=== PATIENT | female | born 1945 | race Caucasian/White ===

== ENCOUNTER 2021-08-12 04:15 | Inpatient (IN) | payer MEDICARE ==
[~2021-08-12] VITALS: Ht 149.9 cm; Wt 71.9 kg
[2021-08-12] MEDS ORDERED: IPRATROPIUM BROM 0.5 MG/2.5ML INH SOL HHN ONE (04:30)
[2021-08-12] MEDS ORDERED: DexAMETHasone SOD PHOS 10MG/1ML VIAL INJ IV ONE (04:30)
[2021-08-12] MEDS ORDERED: ALBUTEROL SULF 2.5 MG/0.5ML(0.5%) NEB SOLN HHN ONE (04:30)
[2021-08-12 05:16] LABS: Basophils # (auto) 0 10 ^3/uL (0-0.2); Basophils % (auto) 0.1 % (0.0-2.0); Eosinophils # (auto) 0 10 ^3/uL (0-0.8); Eosinophils % (auto) 0.2 % (0.0-7.0); Hematocrit 38.3 % (36.0-46.0); Hemoglobin 12.7 g/dL (12.2-16.2); Lymphocytes # (auto) 0.7 10 ^3/uL (0.4-5.4); Lymphocytes % (auto) 5.9 % (10.0-50.0); Mean Corpuscular Hemoglobin 32.1 pg (28.0-32.0); Mean Corpuscular Hgb Conc. 33.1 g/dL (32.0-36.0); Monocytes # (auto) 0.4 10 ^3/uL (0-1.3); Monocytes % (auto) 3.1 % (0.0-12.0); Neutrophils # (auto) 11.1 10 ^3/uL (1.6-8.6); Neutrophils % (auto) 90.7 % (37.0-80.0); Red Blood Cells 3.95 10^6/uL (4.0-5.20); Red Cell Distribution Width 15.6 % (11.8-14.3); White Blood Cell 12.2 10^3/uL (4.4-10.8)
[2021-08-12 05:31] LABS: INR 1.11 (0.9-1.15); Partial Thromboplastin Time 29.7 sec (23.6-33.0)
[2021-08-12 05:34] LABS: Albumin 3.1 g/dL (3.4-5.0); Calcium 8.1 mg/dL (8.5-10.1); Magnesium 1.5 mg/dL (1.6-2.6)
[2021-08-12 05:37] LABS: Lactic Acid w/Reflex 3.3 mmol/L (0.4-2.0)
[2021-08-12 05:40] LABS: BUN/Creatinine Ratio 20.4; Bilirubin, Total 0.4 mg/dL (0.2-1.0); Total Protein 7.6 g/dL (6.4-8.2)
[2021-08-12] MEDS ORDERED: PIPERACILLIN-TAZO 4.5GM 100 ML IV ONE (06:00)
[2021-08-12] MEDS ORDERED: NITROGLYCERIN 0.4 MG SL TAB SL PRN (11:00)
[2021-08-12] MEDS ORDERED: MORPHINE SULFATE INJECTION 2 MG/ML SYRG IV PRN (11:00)
[2021-08-12] MEDS ORDERED: ASPirin-EC 81 mg tab PO ONE (11:36)
[2021-08-12] MEDS ORDERED: METOPROLOL TARTRATE 25 MG TAB PO ONE (11:36)
[2021-08-12] MEDS ORDERED: PANTOPRAZOLE 40 MG TAB PO ONE (11:36)
[2021-08-12] MEDS ORDERED: ALBUTEROL SULF 2.5 MG/0.5ML(0.5%) NEB SOLN NEB PRN (11:45)
[2021-08-12] MEDS ORDERED: IPRATROPIUM BROM 0.5 MG/2.5ML INH SOL NEB PRN (11:45)
[2021-08-12] MEDS ORDERED: AZITHROMYCIN 500MG/ 250ML 250 ML IV ONE (12:00)
[2021-08-12] MEDS: MAGNESIUM SULFATE 1GM/100ML 100 ML IV SCH ×2 (12:11→15:31)
[2021-08-12] MEDS ORDERED: FUROSEMIDE 20 MG/2 ML VIAL IV ONE (12:15)
[2021-08-12] MEDS ORDERED: DEXTROSE (50%) 50ML SYRG IV PRN (13:00)
[2021-08-12 13:16] LABS: Urine Bacteria MANY /hpf (None Seen); Urine Blood 3+ /uL (Negative); Urine WBC 90 /hpf (0 - 5)
[2021-08-12 13:41] VITALS: BP 104/53
[2021-08-12] MEDS: PRAMIPEXOLE DIHYDROCHLORIDE MO 0.25 MG TAB PO SCH ×2 (14:31→22:00)
[2021-08-12] MEDS ORDERED: IOHEXOL 350 MG/ML 100ML IJ ONE (15:05)
[2021-08-12] MEDS: ACCU-CHEK COMFORT CURVE STRIP VI SCH ×2 (16:57→22:00)
[2021-08-12] MEDS: InsuLIN REG 1unit/0.01ml Soln (100units/ml) SC SCH ×2 (16:57→22:12)
[2021-08-12] MEDS: FUROSEMIDE 20 MG/2 ML VIAL IV SCH (18:21)
[2021-08-12] MEDS ORDERED: TORS20TA19 PO (18:55)
[2021-08-12] MEDS ORDERED: MAGN241.6 PO (18:55)
[2021-08-12] MEDS ORDERED: METO25TA93 PO (18:55)
[2021-08-12] MEDS ORDERED: VALS1TAB56 PO (18:55)
[2021-08-12] MEDS ORDERED: FLEC1TAB PO (18:55)
[2021-08-12] MEDS ORDERED: GABA300C10 PO (18:55)
[2021-08-12] MEDS ORDERED: [UNRECOGNIZED DRUG - CODE] EACHEYE (18:55)
[2021-08-12] MEDS ORDERED: PRAM0.12 PO (19:00)
[2021-08-12 22:00] VITALS: BP 101/59
[2021-08-12] MEDS: METOPROLOL TARTRATE 25 MG TAB PO SCH (22:00)
[2021-08-12] MEDS: APIXABAN 5 MG TAB PO SCH (22:00)
[2021-08-12 22:18] VITALS: BP 101/59
[2021-08-13 05:00] VITALS: BP 115/66
[2021-08-13] MEDS: FUROSEMIDE 20 MG/2 ML VIAL IV SCH ×2 (05:46→18:00)
[2021-08-13] MEDS: guaiFENesin-DM 100/10mg/5ml SYR PO PRN (05:56)
[2021-08-13 06:12] LABS: Basophils # (auto) 0 10 ^3/uL (0-0.2); Basophils % (auto) 0.1 % (0.0-2.0); Eosinophils # (auto) 0 10 ^3/uL (0-0.8); Hematocrit 34.6 % (36.0-46.0); Hemoglobin 11.4 g/dL (12.2-16.2); Lymphocytes # (auto) 0.9 10 ^3/uL (0.4-5.4); Lymphocytes % (auto) 6.5 % (10.0-50.0); Mean Corpuscular Hemoglobin 31.2 pg (28.0-32.0); Mean Corpuscular Volume 94.6 fL (80.0-100.0); Monocytes # (auto) 0.5 10 ^3/uL (0-1.3); Monocytes % (auto) 3.4 % (0.0-12.0); Neutrophils # (auto) 12.2 10 ^3/uL (1.6-8.6); Red Blood Cells 3.66 10^6/uL (4.0-5.20); White Blood Cell 13.6 10^3/uL (4.4-10.8)
[2021-08-13] MEDS: ACCU-CHEK COMFORT CURVE STRIP VI SCH ×4 (06:38→22:29)
[2021-08-13] MEDS: InsuLIN REG 1unit/0.01ml Soln (100units/ml) SC SCH ×4 (06:39→22:00)
[2021-08-13 06:43] LABS: Potassium 3.6 mmol/L (3.5-5.1)
[2021-08-13 06:49] LABS: Albumin 2.8 g/dL (3.4-5.0); BUN/Creatinine Ratio 27.8; Bilirubin, Total 0.5 mg/dL (0.2-1.0); Calcium 8.1 mg/dL (8.5-10.1); Magnesium 1.7 mg/dL (1.6-2.6); Total Protein 6.9 g/dL (6.4-8.2)
[2021-08-13 09:00] VITALS: BP 123/63
[2021-08-13] MEDS: cefTRIAXone 1GM/50ML D5W 50 ML IV SCH (09:00)
[2021-08-13] MEDS: AZITHROMYCIN 500MG/ 250ML 250 ML IV SCH (10:00)
[2021-08-13] MEDS: PRAMIPEXOLE DIHYDROCHLORIDE MO 0.25 MG TAB PO SCH ×2 (10:00→22:14)
[2021-08-13] MEDS ORDERED: ASPirin-EC 81 mg tab PO SCH (10:00)
[2021-08-13] MEDS: APIXABAN 5 MG TAB PO SCH ×2 (10:00→22:15)
[2021-08-13] MEDS: METOPROLOL TARTRATE 25 MG TAB PO SCH ×2 (10:00→22:15)
[2021-08-13] MEDS ORDERED: PANTOPRAZOLE 40 MG TAB PO SCH (10:00)
[2021-08-13] MEDS ORDERED: MAGNESIUM SULFATE 1GM/100ML 100 ML IV ONE ×2 (12:45→14:15)
[2021-08-13 12:49] VITALS: BP 144/55
[2021-08-13 16:35] VITALS: BP 99/61
[2021-08-13 20:00] VITALS: BP 101/49
[2021-08-13 22:00] VITALS: BP 101/54
[2021-08-14] MEDS: guaiFENesin-DM 100/10mg/5ml SYR PO PRN ×2 (01:04→22:16)
[2021-08-14 05:00] VITALS: BP 114/57
[2021-08-14 05:03] LABS: Magnesium 1.6 mg/dL (1.6-2.6)
[2021-08-14 06:09] LABS: Basophils # (auto) 0 10 ^3/uL (0-0.2); Eosinophils # (auto) 0 10 ^3/uL (0-0.8); Eosinophils % (auto) 0.2 % (0.0-7.0); Hematocrit 36.3 % (36.0-46.0); Hemoglobin 12.3 g/dL (12.2-16.2); Lymphocytes # (auto) 1.6 10 ^3/uL (0.4-5.4); Lymphocytes % (auto) 12.6 % (10.0-50.0); Mean Corpuscular Hemoglobin 32.4 pg (28.0-32.0); Mean Corpuscular Hgb Conc. 33.9 g/dL (32.0-36.0); Mean Corpuscular Volume 95.7 fL (80.0-100.0); Monocytes # (auto) 0.6 10 ^3/uL (0-1.3); Neutrophils # (auto) 10.6 10 ^3/uL (1.6-8.6); Neutrophils % (auto) 82.2 % (37.0-80.0); Red Blood Cells 3.79 10^6/uL (4.0-5.20); Red Cell Distribution Width 15.3 % (11.8-14.3); White Blood Cell 12.8 10^3/uL (4.4-10.8)
[2021-08-14 06:22] LABS: Calcium 8.2 mg/dL (8.5-10.1); Potassium 3.2 mmol/L (3.5-5.1)
[2021-08-14] MEDS: FUROSEMIDE 20 MG/2 ML VIAL IV SCH ×2 (06:52→17:45)
[2021-08-14] MEDS: ACCU-CHEK COMFORT CURVE STRIP VI SCH ×4 (06:52→21:54)
[2021-08-14] MEDS: InsuLIN REG 1unit/0.01ml Soln (100units/ml) SC SCH ×4 (07:00→21:54)
[2021-08-14 09:00] VITALS: BP 105/58
[2021-08-14] MEDS: cefTRIAXone 1GM/50ML D5W 50 ML IV SCH (11:15)
[2021-08-14] MEDS: CHOLECALCIFEROL (VITD3) 2,000 UNIT CAP/TAB PO SCH (11:15)
[2021-08-14] MEDS: APIXABAN 5 MG TAB PO SCH ×2 (11:15→21:53)
[2021-08-14] MEDS: METOPROLOL TARTRATE 25 MG TAB PO SCH ×2 (11:15→21:53)
[2021-08-14] MEDS: PRAMIPEXOLE DIHYDROCHLORIDE MO 0.25 MG TAB PO SCH ×2 (11:16→21:53)
[2021-08-14 13:00] VITALS: BP 104/61
[2021-08-14] MEDS: AZITHROMYCIN 500MG/ 250ML 250 ML IV SCH (14:46)
[2021-08-14] MEDS: ACETAMINOPHEN 325 MG TAB PO PRN (16:46)
[2021-08-14 17:00] VITALS: BP 112/63
[2021-08-14] MEDS ORDERED: MAGNESIUM SULFATE 1GM/100ML 100 ML IV SCH (17:00)
[2021-08-14] MEDS ORDERED: POTASSIUM CHL 20 Meq TABLET PO ONE (17:00)
[2021-08-14] MEDS: MAGNESIUM SULFATE 1GM/100ML 100 ML IV SCH ×2 (19:47→20:52)
[2021-08-14 21:37] VITALS: BP 110/71
[2021-08-14] MEDS: POTASSIUM CHL 10 Meq TABLET PO SCH (21:53)
[2021-08-15] MEDS: guaiFENesin-DM 100/10mg/5ml SYR PO PRN ×2 (02:53→22:47)
[2021-08-15 05:00] VITALS: BP 112/61
[2021-08-15] MEDS: FUROSEMIDE 20 MG/2 ML VIAL IV SCH ×2 (06:47→18:25)
[2021-08-15] MEDS: InsuLIN REG 1unit/0.01ml Soln (100units/ml) SC SCH ×4 (07:00→22:00)
[2021-08-15 07:05] LABS: Potassium 4.1 mmol/L (3.5-5.1)
[2021-08-15] MEDS: ACCU-CHEK COMFORT CURVE STRIP VI SCH ×4 (07:07→22:48)
[2021-08-15 07:20] LABS: Hematocrit 38.2 % (36.0-46.0); Hemoglobin 12.7 g/dL (12.2-16.2); Mean Corpuscular Hemoglobin 31.9 pg (28.0-32.0); Mean Corpuscular Hgb Conc. 33.3 g/dL (32.0-36.0); Mean Corpuscular Volume 95.7 fL (80.0-100.0); Red Blood Cells 3.99 10^6/uL (4.0-5.20); Red Cell Distribution Width 15.6 % (11.8-14.3); White Blood Cell 7.3 10^3/uL (4.4-10.8)
[2021-08-15 07:22] LABS: Band Neutrophils % (manual) 0; Basophils % (manual) 0 (0.0-2.0); Blast Cells 0; Metamyelocytes % 0; Myelocytes % 0; Promyelocytes % 0; Reactive Lymphocytes 0
[2021-08-15] MEDS: ACETAMINOPHEN 325 MG TAB PO PRN ×2 (07:22→20:26)
[2021-08-15 08:00] VITALS: BP 102/59
[2021-08-15 08:36] LABS: Eosinophils % (manual) 2 (0-7); Lymphocytes % (manual) 24 (10.0-50.0); Monocytes % (manual) 9 (0-12)
[2021-08-15 09:00] VITALS: BP 102/58
[2021-08-15] MEDS: cefTRIAXone 1GM/50ML D5W 50 ML IV SCH (09:00)
[2021-08-15] MEDS: AZITHROMYCIN 500MG/ 250ML 250 ML IV SCH (10:06)
[2021-08-15] MEDS: POTASSIUM CHL 10 Meq TABLET PO SCH ×2 (10:10→22:49)
[2021-08-15] MEDS: APIXABAN 5 MG TAB PO SCH ×2 (10:10→22:49)
[2021-08-15] MEDS: CHOLECALCIFEROL (VITD3) 2,000 UNIT CAP/TAB PO SCH (10:10)
[2021-08-15] MEDS: PRAMIPEXOLE DIHYDROCHLORIDE MO 0.25 MG TAB PO SCH ×2 (10:10→22:48)
[2021-08-15] MEDS: METOPROLOL TARTRATE 25 MG TAB PO SCH ×2 (10:10→22:49)
[2021-08-15] MEDS ORDERED: HYDROcodone-ACET 5/325MG TAB PO PRN (12:00)
[2021-08-15] MEDS ORDERED: ONDANSETRON HCL 4 MG/2 ML VIAL IV PRN (15:30)
[2021-08-15 17:00] VITALS: BP 115/65
[2021-08-15 22:00] VITALS: BP 114/66
[2021-08-16] VITALS (7 sets, daily range): BP systolic 107–125; BP diastolic 50–74
[2021-08-16 05:54] LABS: Basophils # (auto) 0 10 ^3/uL (0-0.2); Basophils % (auto) 0.5 % (0.0-2.0); Eosinophils # (auto) 0.2 10 ^3/uL (0-0.8); Eosinophils % (auto) 3.2 % (0.0-7.0); Hematocrit 38.3 % (36.0-46.0); Hemoglobin 12.5 g/dL (12.2-16.2); Lymphocytes # (auto) 1.1 10 ^3/uL (0.4-5.4); Lymphocytes % (auto) 23.6 % (10.0-50.0); Mean Corpuscular Hemoglobin 31.4 pg (28.0-32.0); Mean Corpuscular Hgb Conc. 32.5 g/dL (32.0-36.0); Mean Corpuscular Volume 96.4 fL (80.0-100.0); Monocytes # (auto) 0.6 10 ^3/uL (0-1.3); Monocytes % (auto) 12.1 % (0.0-12.0); Neutrophils # (auto) 2.9 10 ^3/uL (1.6-8.6); Neutrophils % (auto) 60.6 % (37.0-80.0); Nucleated Red Blood Cells % 0.1 %; Red Blood Cells 3.97 10^6/uL (4.0-5.20); Red Cell Distribution Width 15.1 % (11.8-14.3); White Blood Cell 4.8 10^3/uL (4.4-10.8)
[2021-08-16 06:13] LABS: BUN/Creatinine Ratio 31.6; Calcium 8.1 mg/dL (8.5-10.1); Magnesium 2.2 mg/dL (1.6-2.6); Potassium 3.7 mmol/L (3.5-5.1)
[2021-08-16] MEDS: FUROSEMIDE 20 MG/2 ML VIAL IV SCH ×2 (06:28→18:54)
[2021-08-16] MEDS: ACCU-CHEK COMFORT CURVE STRIP VI SCH ×4 (06:28→22:12)
[2021-08-16] MEDS: InsuLIN REG 1unit/0.01ml Soln (100units/ml) SC SCH ×4 (06:29→22:13)
[2021-08-16] MEDS: POTASSIUM CHL 10 Meq TABLET PO SCH ×2 (09:57→22:11)
[2021-08-16] MEDS: APIXABAN 5 MG TAB PO SCH ×2 (09:57→22:11)
[2021-08-16] MEDS: cefTRIAXone 1GM/50ML D5W 50 ML IV SCH (09:57)
[2021-08-16] MEDS: METOPROLOL TARTRATE 25 MG TAB PO SCH ×2 (09:58→22:12)
[2021-08-16] MEDS: PRAMIPEXOLE DIHYDROCHLORIDE MO 0.25 MG TAB PO SCH ×2 (09:58→22:12)
[2021-08-16] MEDS: CHOLECALCIFEROL (VITD3) 2,000 UNIT CAP/TAB PO SCH (09:59)
[2021-08-16] MEDS: AZITHROMYCIN 500MG/ 250ML 250 ML IV SCH (10:33)
[2021-08-16] MEDS: ACETAMINOPHEN 325 MG TAB PO PRN (12:06)
[2021-08-17 05:31] VITALS: BP 124/68
[2021-08-17] MEDS: FUROSEMIDE 20 MG/2 ML VIAL IV SCH (05:54)
[2021-08-17] MEDS: InsuLIN REG 1unit/0.01ml Soln (100units/ml) SC SCH ×2 (06:02→11:30)
[2021-08-17] MEDS: ACCU-CHEK COMFORT CURVE STRIP VI SCH ×2 (06:02→11:30)
[2021-08-17] MEDS: ACETAMINOPHEN 325 MG TAB PO PRN (06:40)
[2021-08-17] MEDS: PRAMIPEXOLE DIHYDROCHLORIDE MO 0.25 MG TAB PO SCH (09:15)
[2021-08-17] MEDS: CHOLECALCIFEROL (VITD3) 2,000 UNIT CAP/TAB PO SCH (09:16)
[2021-08-17] MEDS: POTASSIUM CHL 10 Meq TABLET PO SCH (09:17)
[2021-08-17] MEDS: cefTRIAXone 1GM/50ML D5W 50 ML IV SCH (09:17)
[2021-08-17] MEDS: APIXABAN 5 MG TAB PO SCH (09:17)
[2021-08-17] MEDS: METOPROLOL TARTRATE 25 MG TAB PO SCH (09:18)
[2021-08-17] MEDS: AZITHROMYCIN 500MG/ 250ML 250 ML IV SCH ×2 (09:18→10:20)
[2021-08-17 09:20] VITALS: BP 133/63
[2021-08-17] MEDS ORDERED: APIX5TAB PO (12:11)
[2021-08-17 13:07] VITALS: BP 121/67
[2021-08-17 13:51] VITALS: BP 121/67
[2021-08-17 17:11] VITALS: BP 162/76
== END 2021-08-17 17:20 | disposition home or self-care (01) | DRG 871 ==
LOC: ER 04:15 → TELE 10:48 → TELE-WESTW 21:18
PROVIDERS: ADMIT Internal Medicine; ATTEND Internal Medicine
DX: A41.9 Sepsis, unspecified organism (principal); J18.9 Pneumonia, unspecified organism; I21.A1 Myocardial infarction type 2; J96.00 Acute respiratory failure, unspecified whether with hypoxia or hypercapnia; I50.43 Acute on chronic combined systolic (congestive) and diastolic (congestive) heart failure; N39.0 Urinary tract infection, site not specified; I48.0 Paroxysmal atrial fibrillation; G47.33 Obstructive sleep apnea (adult) (pediatric); E11.9 Type 2 diabetes mellitus without complications; I11.0 Hypertensive heart disease with heart failure; E66.9 Obesity, unspecified; J45.909 Unspecified asthma, uncomplicated; B96.20 Unspecified Escherichia coli [E. coli] as the cause of diseases classified elsewhere; E55.9 Vitamin D deficiency, unspecified; E78.5 Hyperlipidemia, unspecified; E87.6 Hypokalemia; Z20.822 Contact with and (suspected) exposure to COVID-19; Z85.42 Personal history of malignant neoplasm of other parts of uterus; Z90.710 Acquired absence of both cervix and uterus; Z88.1 Allergy status to other antibiotic agents; Z88.8 Allergy status to other drugs, medicaments and biological substances; Z68.32 Body mass index [BMI] 32.0-32.9, adult; G25.81 Restless legs syndrome
CPT/HCPCS: 36415; 36600; 71045; 71275; 80048; 80053; 80061; 81001; 82306; 82728; 82805; 82962; 83036; 83605; 83615; 83735; 83880; 84132; 84443; 84484; 85007; 85025; 85027; 85379; 85610; 85730; 86141; 87040; 87086; 87088; 87186; 87426; 87804; 93005; 93306; 94640; 96365; 96366; 96367; 96375; 96376; 97110; 97116; 97163; 97530; 99291; G0378; J0696; J1100; J1815; J2405; J2543